=== PATIENT | female | born 1985 | race Caucasian/White ===

== ENCOUNTER 2023-10-31 21:45 | Emergency (ER) | payer OTHER, MEDICAID ==
[~2023-10-31] VITALS: Ht 157.4 cm; Wt 77.1 kg
[~2023-10-31 21:45] MED LIST: BENTYL10 MG PO; CYCLOBENZAPRINE5 M3 PO; Motrin,Rufen800 MG PO; PHENERGAN25 M3 PO
[2023-10-31] MEDS ORDERED: ACETAMINOPHEN 325 MG TAB PO ONE (23:20)
[2023-11-01] MEDS ORDERED: Dexamethasone Sodium Phospha 20 MG/5 ML VIAL IM ONE (01:00)
== END 2023-11-01 01:14 | disposition home or self-care (01) ==
LOC: ED
DX: M54.2 Cervicalgia (principal); M25.561 Pain in right knee; M79.641 Pain in right hand; Z88.8 Allergy status to other drugs, medicaments and biological substances; Z87.891 Personal history of nicotine dependence; V89.2XXA Person injured in unspecified motor-vehicle accident, traffic, initial encounter; Y93.89 Activity, other specified; Y92.410 Unspecified street and highway as the place of occurrence of the external cause; Y99.8 Other external cause status

== ENCOUNTER 2024-04-02 19:18 | Emergency (ER) | payer OTHER ==
[~2024-04-02] VITALS: Ht 157.4 cm; Wt 63.5 kg
[2024-04-02] MEDS ORDERED: MONTELUKAST SOD10 MG PO (19:35)
[2024-04-02] MEDS ORDERED: PANTOPRAZOLE SO40 MG PO (19:35)
[2024-04-02] MEDS ORDERED: BUSPAR15 MG PO (19:35)
[2024-04-02] MEDS ORDERED: LEVOTHYROXINE50 MCG PO (19:35)
[2024-04-02] MEDS ORDERED: AZITHROMYCIN 250 MG TAB PO ONE (19:50)
[2024-04-02] MEDS ORDERED: FLUCONAZOLE 150 MG TAB PO ONE (19:55)
[2024-04-02] MEDS ORDERED: METRONIDAZOLE 500 MG TAB PO ONE (19:55)
[2024-04-02 20:22] LABS: BILIRUBIN Negative (Negative); BLOOD Negative (Negative); CLARITY Cloudy (Clear); COLOR Yellow (Yellow); GLUCOSE Negative (Negative); KETONE Trace (Negative); LEUKO ESTERASE Negative (Negative); NITRITE Negative (Negative); PH 5.5 (4.5-8.0); SPECIFIC GRAVITY >= 1.030 (1.001-1.030)
[2024-04-02 20:34] LABS: CALCIUM OXALATE CRYSTALS 4+; EPITHELIAL CELLS 0-2
== END 2024-04-02 20:44 | disposition home or self-care (01) ==
LOC: ED 19:18
PROVIDERS: Nurse Practitioner
DX: Z11.3 Encounter for screening for infections with a predominantly sexual mode of transmission (principal); Z88.8 Allergy status to other drugs, medicaments and biological substances; Z79.899 Other long term (current) drug therapy